=== PATIENT | female | born 2000 | race Hispanic/Latino ===

== ENCOUNTER 2023-03-11 10:46 | Emergency (ER) | payer OTHER, SELFPAY ==
[2023-03-11] MEDS ORDERED: Methocarbamol 500 MG TAB ONE (11:53)
== END 2023-03-11 12:33 | disposition home or self-care (01) ==
LOC: ERS 10:46
DX: S30.0XXA Contusion of lower back and pelvis, initial encounter (principal); V43.62XA Car passenger injured in collision with other type car in traffic accident, initial encounter
CPT/HCPCS: 99283